=== PATIENT | female | born 1970 | race Caucasian/White ===

== ENCOUNTER → 2017-11-06 | Day surgery (SDC) | payer OTHER ==
[~2017-11-06] MED LIST: ALPRAZOLAM1 M2 PO; AMOXICILLIN500 M3 PO; LISINOPRIL-HCT1 EAC2 PO; PERCOCET 5-3251 EACH PO
--- NOTE | 2017-11-06 18:02 | Operative Report ---
Operative/Inv Procedure Report Surgery Date: 11/06/17 Name of Procedure: D&C hysteroscopy Pre-Operative Diagnosis: Postmenopausal bleeding Post-Operative Diagnosis: Same Estimated Blood Loss: scant Surgeon/[employer] Operator: Echo Riggs MD Anesthesia: moderate sedation Operative/Procedure Note Note: She was taken the operating room placed supine position after adequate anesthesia patient was placed in dorsal supine position the abdomen was prepped in usual fashion bladder was catheterized and examination under anesthesia performed a Graves speculum was placed into the vagina CO2 Placed on the atrial lip of the cervix gentle downward traction performed cervix was dilated with a Hegar to allow the insertion of the hysteroscope under direct visualization using gastroscope was placed into the uterus and the cystoscope was removed after the examination. An endocervical curettage was performed and endometrial curettage performed 2 specimens were sent to pathology patient tolerated that well at this point on specimens removed from the vagina the patient was returned supine position she was awakened from anesthesia and transported recovery room awake and alert counts correct Findings: Enlarged uterus no adnexal masses. The uterine lining otherwise normal anatomy
== END ==
LOC: STS 03:18
DX: N95.0 Postmenopausal bleeding (principal); I10 Essential (primary) hypertension; E06.3 Autoimmune thyroiditis; F17.200 Nicotine dependence, unspecified, uncomplicated
CPT/HCPCS: J2250